=== PATIENT | female | born 1970 | race Two or more races ===

== ENCOUNTER 2020-05-01 10:25 | Outpatient (CLI) | payer BC | END 2020-05-01 23:59 | disposition home or self-care (01) | LOC: MSC 10:25 | PROVIDERS: ATTEND Internal Medicine | DX: G43.909 Migraine, unspecified, not intractable, without status migrainosus (principal); I10 Essential (primary) hypertension; E03.9 Hypothyroidism, unspecified; E55.9 Vitamin D deficiency, unspecified; M54.2 Cervicalgia; M54.5 Low back pain ==

== ENCOUNTER 2020-06-07 10:21 | Outpatient (CLI) | payer BC | END 2020-06-07 23:59 | disposition home or self-care (01) | LOC: MSC 10:21 | PROVIDERS: ATTEND Internal Medicine | DX: R22.43 Localized swelling, mass and lump, lower limb, bilateral (principal); E03.9 Hypothyroidism, unspecified; E55.9 Vitamin D deficiency, unspecified ==

== ENCOUNTER 2020-09-06 11:18 | Outpatient (CLI) | payer BC | END 2020-09-06 23:59 | disposition home or self-care (01) | LOC: MSC 11:18 | PROVIDERS: ATTEND Internal Medicine | DX: R22.43 Localized swelling, mass and lump, lower limb, bilateral (principal); E03.9 Hypothyroidism, unspecified; E55.9 Vitamin D deficiency, unspecified; Z79.899 Other long term (current) drug therapy ==